=== PATIENT | male | born 1965 | race Caucasian/White ===

== ENCOUNTER 2024-06-27 07:38 | Outpatient (CLI) | payer BC ==
[~2024-06-27 07:38] MED LIST: Gadobenate Dimeglumine 2 ML, Sodium Chloride 0.9% 250 ML 10 ML, Iopamidol 8 ML, Lidocai... FS ONE
== END 2024-06-27 07:39 | disposition home or self-care (01) ==
LOC: CSHRAD 07:38
PROVIDERS: ATTEND Orthopaedic Surgery
DX: S43.431A Superior glenoid labrum lesion of right shoulder, initial encounter (principal); M75.111 Incomplete rotator cuff tear or rupture of right shoulder, not specified as traumatic; M19.011 Primary osteoarthritis, right shoulder; R93.7 Abnormal findings on diagnostic imaging of other parts of musculoskeletal system; M89.8X1 Other specified disorders of bone, shoulder; M75.51 Bursitis of right shoulder
CPT/HCPCS: 23350; 77002; A9577; J0171; J7050; Q9967